=== PATIENT | male | born 1960 | race Caucasian/White ===

== ENCOUNTER 2022-11-10 10:36 | Emergency (ER) | payer OTHER, SELFPAY ==
--- NOTE | ~2022-11-10 | XR_ITS ---
EXAMINATION: XR chest 2V DATE: 11/10/2022 11:31 INDICATION: Cough. Shortness of breath. TECHNIQUE: Frontal and lateral views of the chest were obtained. COMPARISON: Chest 2 views 09/17/2009, CT abdomen and pelvis 12/13/2013 FINDINGS: A calcified right lung nodule and calcified right hilar lymph nodes are consistent with old granulomatous disease. No pleural effusion or pneumothorax. The heart size is normal. IMPRESSION: 1. No acute cardiopulmonary disease. Reviewed, dictated and finalized at location A.
[2022-11-10 10:50] VITALS: BP 151/97; PULSE 94; RESP 18; TEMP 37.3; O2SAT 95
--- NOTE | 2022-11-10 11:27 | ED.URI ---
HPI - URI/Sore Throat General Chief Complaint: Upper Respiratory Infection Stated Complaint: Cough,Fatigue,Congestion,Body Aches Source: patient Mode of arrival: ambulatory Limitations: no limitations History of Present Illness HPI Narrative: 62-year-old male presents to [facility] with complaints of nasal congestion, body aches, productive cough, runny nose, fatigue and intermittent wheezing for the past 6 days. Patient has been taking [id number] NyQuil, Mucinex and Tylenol with minimal relief. Patient reports history of bronchitis. Patient is nonsmoker. Patient denies sick contacts. Patient denies recent travel. Patient reports that he has intermittent pain to his back with coughing at times. MD elicited complaint: cough, rhinorrhea and nasal congestion Pertinent past history: other (bronchitis ) Onset (ago): day(s) (6) Able to tolerate fluids by mouth: Yes Treatments prior to arrival: acetaminophen and cold medicine Related Data Allergies Allergy/AdvReac Type Severity Reaction Status Date / Time No Known Allergies Allergy Verified 11/10/22 10:52 Review of Systems Constitutional: Constitutional: Denies chills, Reports fatigue, Denies fever(s) and Denies weakness ENT: Denies vertigo, Denies dizziness, Denies epistaxis, Reports nasal congestion and Denies sore throat Cardiovascular: Cardiovascular: Denies chest pain Respiratory: Respiratory: Reports chest congestion, Reports cough, Denies dyspnea and Reports wheezing Gastrointestinal: Gastrointestinal: Denies abdominal pain, Denies diarrhea, Denies nausea and Denies vomiting Integumentary/Breasts: Skin/Breast: Denies rash Neurologic: Denies dizziness, Denies syncope and Denies headache(s) PMFSH Family History Family History Father Family history of diabetes mellitus in first degree relative Other Family history of polycystic kidney disease Social History Social History Smoking status: Never smoker Second hand tobacco smoke exposure: No Smoking end date: 08/10/02 Alcohol intake: current Comments At time of signature, I agree with nursing past medical, surgical, social and family history. There is no relevant family history pertinent to the presenting complaint. Exam Const: General: healthy appearing and no acute distress Nutritional Appearance: well nourished Orientation/consciousness: patient oriented x3 Limitations: no limitations HENMT: Head: normal to inspection Ears: external ears normal, TM's normal bilaterally and EAC's normal Face and sinus: normal facial exam Mouth: Yes moist mucous membranes Teeth and gingiva: dentition normal Throat: posterior oropharynx normal and uvula midline Other: Moderate nasal congestion noted Neck: Neck: normal visual inspection Resp: Effort & Inspection: normal respiratory effort, not labored and not tachypneic Auscultation: no crackles, no rales, no rhonchi and no wheezes Other: Diminished lung sounds noted to left lower lung field Cardio: Rate: regular rate Rhythm: regular rhythm Heart sounds: no murmurs Skin: General skin exam: normal color Rashes: no rashes Wounds: no wounds Neuro: General: patient oriented x3 Speech: normal speech Psych: Mental Status: mental status grossly normal Affect: normal affect Attitude: cooperative Course Course Level of Care: Express Care Visit Vital Signs Vital signs: Vital Signs Temperature 37.3 C 11/10/22 10:50 Pulse Rate 94 11/10/22 10:50 Respiratory Rate 18 11/10/22 10:50 Blood Pressure 151/97 H 11/10/22 10:50 Pulse Oximetry 95 11/10/22 10:50 Oxygen Delivery Room Air 11/10/22 10:50 Temperature 37.3 C 11/10/22 10:50 Pulse Rate 94 11/10/22 10:50 Respiratory Rate 18 11/10/22 10:50 Blood Pressure 151/97 H 11/10/22 10:50 Pulse Oximetry 95 11/10/22 10:50 Oxygen Delivery Room Air 11/10/22 10
== END 2022-11-10 11:58 | disposition home or self-care (01) ==
PROVIDERS: Emergency Provider Nurse Practitioner Family; PCP Family Medicine
DX: J06.9 Acute upper respiratory infection, unspecified (principal); Z87.891 Personal history of nicotine dependence
CPT/HCPCS: 71046; 99213; G0463